=== PATIENT | male | born 1975 | race Caucasian/White ===

== ENCOUNTER 2024-07-18 07:18 | Outpatient (CLI) | payer OTHER ==
[~2024-07-18] VITALS: Ht 177.8 cm; Wt 90.0 kg
[2024-07-18 07:30] VITALS: BP 142/77; O2SAT 100
[2024-07-18 07:50] LABS: HEMATOCRIT 45.3 % (42.0-52.0); HEMOGLOBIN 13.6 g/dl (13.5-17.5); MEAN CORPUSCULAR HEMOGLOBIN 21.7 pg (27.0-33.0); MEAN CORPUSCULAR VOLUME 72.1 fl (80.0-96.0); PLATELET COUNT, AUTOMATED 295 10^3/uL (150-450); RED BLOOD COUNT 6.28 10^6/uL (4.30-6.10); WHITE BLOOD COUNT 4.7 10^3/uL (4.0-10.0)
[2024-07-18] MEDS ORDERED: AMLO10TA PO (07:51)
[2024-07-18 08:05] VITALS: BP 128/64; O2SAT 99
== END 2024-07-18 08:10 ==
LOC: M INFU 07:18
PROVIDERS: ATTEND Family Medicine
DX: D45 Polycythemia vera (principal)

== ENCOUNTER 2024-08-15 07:57 | Outpatient (CLI) | payer OTHER ==
[~2024-08-15] VITALS: Ht 177.8 cm; Wt 90.0 kg
[~2024-08-15 07:57] MED LIST: AMLO10TA PO
[2024-08-15 08:00] VITALS: BP 150/74; O2SAT 99
[2024-08-15 08:30] LABS: HEMATOCRIT 42.4 % (42.0-52.0); HEMOGLOBIN 12.8 g/dl (13.5-17.5); MEAN CORPUSCULAR HEMOGLOBIN 21.4 pg (27.0-33.0); MEAN CORPUSCULAR HGB CONC 30.2 g/dl (32.0-36.5); PLATELET COUNT, AUTOMATED 286 10^3/uL (150-450); RED BLOOD COUNT 5.97 10^6/uL (4.30-6.10); WHITE BLOOD COUNT 4.4 10^3/uL (4.0-10.0)
== END 2024-08-15 08:40 | disposition home or self-care (01) ==
LOC: M INFU 07:57
PROVIDERS: ATTEND Family Medicine
DX: D45 Polycythemia vera (principal)

== ENCOUNTER 2024-10-01 15:25 | Outpatient (CLI) | payer OTHER ==
[2024-10-01 15:45] LABS: HEMOGLOBIN 13.6 g/dl (13.5-17.5); MEAN CORPUSCULAR HEMOGLOBIN 20.7 pg (27.0-33.0); MEAN CORPUSCULAR HGB CONC 29.6 g/dl (32.0-36.5); MEAN CORPUSCULAR VOLUME 69.9 fl (80.0-96.0); PLATELET COUNT, AUTOMATED 339 10^3/uL (150-450); RED BLOOD COUNT 6.58 10^6/uL (4.30-6.10); WHITE BLOOD COUNT 4.7 10^3/uL (4.0-10.0)
[2024-10-01 16:20] VITALS: BP 148/79; O2SAT 99
== END 2024-10-01 16:25 ==
LOC: M INFU 15:25
PROVIDERS: ATTEND Family Medicine
DX: D45 Polycythemia vera (principal)

== ENCOUNTER → 2024-10-31 | Outpatient (CLI) | payer OTHER ==
[2024-10-31 07:36] LABS: HEMATOCRIT 42.9 % (42.0-52.0); HEMOGLOBIN 13.1 g/dl (13.5-17.5); MEAN CORPUSCULAR HGB CONC 30.5 g/dl (32.0-36.5); MEAN CORPUSCULAR VOLUME 68.9 fl (80.0-96.0); PLATELET COUNT, AUTOMATED 284 10^3/uL (150-450); RED BLOOD COUNT 6.23 10^6/uL (4.30-6.10); WHITE BLOOD COUNT 4.8 10^3/uL (4.0-10.0)
== END ==
LOC: M INFU 07:05
PROVIDERS: ATTEND Family Medicine
DX: D45 Polycythemia vera (principal)

== ENCOUNTER 2024-12-05 08:00 | Outpatient (CLI) | payer OTHER ==
[2024-12-05 08:15] LABS: HEMATOCRIT 47.9 % (42.0-52.0); MEAN CORPUSCULAR HGB CONC 30.3 g/dl (32.0-36.5); MEAN CORPUSCULAR VOLUME 69.4 fl (80.0-96.0); PLATELET COUNT, AUTOMATED 321 10^3/uL (150-450); WHITE BLOOD COUNT 4.9 10^3/uL (4.0-10.0)
[2024-12-05 08:16] LABS: HEMOGLOBIN 14.5 g/dl (13.5-17.5)
[2024-12-05 09:15] VITALS: BP 160/88; O2SAT 98
== END 2024-12-05 09:15 ==
LOC: M INFU 08:00
PROVIDERS: ATTEND Family Medicine
DX: D45 Polycythemia vera (principal)

== ENCOUNTER 2025-01-30 16:30 | Outpatient (CLI) | payer OTHER ==
[2025-01-30 17:08] LABS: HEMATOCRIT 44.8 % (42.0-52.0); HEMOGLOBIN 13.4 g/dl (13.5-17.5); MEAN CORPUSCULAR HEMOGLOBIN 20.9 pg (27.0-33.0); MEAN CORPUSCULAR HGB CONC 29.9 g/dl (32.0-36.5); MEAN CORPUSCULAR VOLUME 69.8 fl (80.0-96.0); PLATELET COUNT, AUTOMATED 359 10^3/uL (150-450); RED BLOOD COUNT 6.42 10^6/uL (4.30-6.10); WHITE BLOOD COUNT 5.9 10^3/uL (4.0-10.0)
== END 2025-01-30 17:18 ==
LOC: M INFU 16:30
PROVIDERS: ATTEND Family Medicine
DX: D45 Polycythemia vera (principal)

== ENCOUNTER 2025-03-03 15:00 | Outpatient (CLI) | payer OTHER ==
[~2025-03-03] VITALS: Ht 175.3 cm; Wt 88.6 kg
[~2025-03-03 15:00] MED LIST changes: +AMLO-751 PO; -AMLO10TA PO
[2025-03-03 15:05] VITALS: BP 139/73; O2SAT 98
[2025-03-03 15:24] LABS: HEMATOCRIT 44.3 % (42.0-52.0); HEMOGLOBIN 13.3 g/dl (13.5-17.5); MEAN CORPUSCULAR HEMOGLOBIN 20.9 pg (27.0-33.0); MEAN CORPUSCULAR VOLUME 69.7 fl (80.0-96.0); PLATELET COUNT, AUTOMATED 330 10^3/uL (150-450); RED BLOOD COUNT 6.36 10^6/uL (4.30-6.10); WHITE BLOOD COUNT 5.5 10^3/uL (4.0-10.0)
== END 2025-03-03 15:25 | disposition home or self-care (01) ==
LOC: M INFU 15:00
PROVIDERS: ATTEND Family Medicine
DX: D45 Polycythemia vera (principal)